=== PATIENT | female | born 2005 | race Asian ===

== ENCOUNTER 2024-09-23 13:45 | Outpatient (RCR) | payer OTHER, SELFPAY | END 2024-10-16 13:50 | disposition home or self-care (01) | PROVIDERS: PCP Physician Assistant; Visit Provider Physician Assistant | DX: M25.522 Pain in left elbow (principal); M77.12 Lateral epicondylitis, left elbow; M54.2 Cervicalgia; M79.11 Myalgia of mastication muscle; Z51.89 Encounter for other specified aftercare | CPT/HCPCS: 97033; 97035; 97110; 97112; 97140; 97161; 97165; 97535; X5282 ==